=== PATIENT | male | born 1980 | race African-American/Black ===

== ENCOUNTER 2022-06-07 05:59 | Emergency (ER) | payer OTHER ==
[~2022-06-07] VITALS: Ht 177.8 cm; Wt 121.6 kg
== END 2022-06-07 06:42 | disposition home or self-care (01) ==
LOC: ER 05:59
DX: S00.211A Abrasion of right eyelid and periocular area, initial encounter (principal); W01.198A Fall on same level from slipping, tripping and stumbling with subsequent striking against other object, initial encounter
CPT/HCPCS: 12011; 99282-25

== ENCOUNTER 2022-07-17 11:52 | Emergency (ER) | payer OTHER ==
[~2022-07-17] VITALS: Ht 180.3 cm; Wt 121.6 kg
[2022-07-17 13:30] LABS: Source, Urine Clean Catch
[2022-07-17 13:40] LABS: Appearance, Urine Clear (Clear); Bilirubin, Urine Neg (Neg); Blood, Urine Neg (Neg); Color, Urine Yellow (P-Yellow); Glucose Qualitative, Urine Neg (Neg); Ketones, Urine Neg (Neg); Leukocyte Esterase, Urine Neg (Neg); Nitrite, Urine Neg (Neg); Protein, Urine Neg (Neg); Urobilinogen, Urine NORM (Normal)
== END 2022-07-17 17:27 | disposition home or self-care (01) ==
LOC: ER 11:52
PROVIDERS: Physician Assistant
DX: K40.90 Unilateral inguinal hernia, without obstruction or gangrene, not specified as recurrent (principal)
CPT/HCPCS: 76870; 81003